=== PATIENT | female | born 1960 | race Two or more races ===

== ENCOUNTER 2021-12-04 22:40 | Inpatient (IN) | payer MEDICARE ==
[~2021-12-04] VITALS: Ht 165.1 cm; Wt 73.9 kg
[2021-12-04] MEDS ORDERED: LEVO25TA9 PO (22:54)
[2021-12-04] MEDS ORDERED: MELA3TAB41 PO (22:54)
--- NOTE | 2021-12-04 23:00 | NUR ---
Patient BIB [facility] ambulance unit 40 from [facility] on a 5150 hold to be medically cleared to be admitted to MHU. Patient calm and cooperative
--- NOTE | 2021-12-05 00:17 | NUR ---
report given to Ginny. patient will go to 145A
[2021-12-05] MEDS ORDERED: ACETAMINOPHEN 325 MG TABLET PO PRN (01:00)
[2021-12-05] MEDS ORDERED: LORAZEPAM 1 MG TABLET PO PRN (01:00)
--- NOTE | 2021-12-05 01:13 | NUR ---
Transfered patient to MHU. Ginny CORDOVA aware of patient's arrival
[2021-12-05 01:19] VITALS: BP 100/54
--- NOTE | 2021-12-05 01:45 | NUR ---
GPS ADMISSION NOTE: Patient is a 61 year old female , [facility] Patient is on a 5150 for DTS and GD. Per hold, the patient was found wondering the streets, confused at 300am. The [facility] The patient was exhibiting grandiose delusions and was unable to verbalized where she lived or verbalize a plan for safety and self care. Upon face to face evaluation, the patient was calm and withdrawn. This curriculum writer was unable to engage the patient in any meaningful conversation and when she was asked why she was here, the patient refused to answer and became irritated. The patient was provided an Advisement and a copy of the Patient Rights Handbook. VS are stable. There is no significant medical history provided and the patient has no contact information. She is homeless per medical notes. The patient was oriented to the environment and offered food which she refused and refused a shower. The patient is sitting on the edge of the bed, staring into space. Continuing to monitor for unpredictable behaviors. Safety Stratiges are in place at this time. Belongings in the safe.
[2021-12-05 04:37] VITALS: BP 100/54
[2021-12-05 08:29] VITALS: BP 118/47
[2021-12-05] MEDS: risperiDONE 0.5 MG TABLET PO SCH ×2 (12:03→17:00)
[2021-12-05] MEDS: LEVOTHYROXINE SODIUM 25 MCG TABLET PO SCH (12:03)
[2021-12-05 17:34] VITALS: BP 138/45
[2021-12-05 21:44] VITALS: BP 125/45
[2021-12-06] MEDS: LEVOTHYROXINE SODIUM 25 MCG TABLET PO SCH (06:10)
[2021-12-06 07:30] VITALS: BP 105/40
[2021-12-06] MEDS: risperiDONE 0.5 MG TABLET PO SCH ×2 (08:47→16:54)
[2021-12-06 15:44] VITALS: BP 109/38
--- NOTE | 2021-12-06 16:15 | NUR ---
MARCO A Initial Discharge Note: Pt is a 61 year old female admitted to [facility] on a 5150 for a danger to self and gravely disabled adult. Pt refused to cooperate in her assessment. Per face sheet, pt did not provide any family contact. Per hold, pt does not have a current residence. MARCO A will continue to work with pt and MD to ensure a safe and proper discharge plan for the pt.
--- NOTE | 2021-12-06 16:24 | NUR ---
Firearms Report: Head Piece Assembler completed and submitted a [employer] firearms report for 5150 for a danger to self and grave disability certifications. A copy of report has been placed in patient chart.
--- NOTE | 2021-12-06 16:47 | NUR ---
Gps/Mail Processing Clerk- Isolative , stayed in her room most of the time, encouraged participation in her group tx. Responding to internal stimuli.
[2021-12-06 20:17] VITALS: BP 112/53
[2021-12-07] MEDS: LEVOTHYROXINE SODIUM 25 MCG TABLET PO SCH (06:10)
--- NOTE | 2021-12-07 06:24 | NUR ---
GPS: Remain calm and cooperative with meds and care. slept 3 hrs through the night. took shower this morning.
[2021-12-07] MEDS: risperiDONE 0.5 MG TABLET PO SCH ×2 (08:56→18:05)
[2021-12-07 09:23] VITALS: BP 113/57
--- NOTE | 2021-12-07 10:15 | NUR ---
GPS: Nursing Notes: Request [facility]: Staff requested a 5250 certification review hearing through [facility] portal, a copy of 5250 delivered to patient, explained 5250 and patient verbalized understanding, continue to monitor for safety, continue with treatment plan.
--- NOTE | 2021-12-07 13:12 | NUR ---
GPS: Nursing Notes: Thought Disorder: Patient is awake and responding to her name, internally preoccupied, compliant with her medication, but needs a lot of prompting to take her medication, gets easily irritable when redirected, mumbling to unseen others when talking to staff, unable to formulate a viable plan for self care, isolative in her room, no interactions with peers, refusing to participate in therapeutic groups, slightly paranoid behavior, evasive when questioned by staff, continue to monitor for safety, continue with treatment plan.
[2021-12-07 16:09] VITALS: BP 120/37
[2021-12-07 20:00] VITALS: BP 126/66
[2021-12-07] MEDS: ZOLPIDEM 5 MG TABLET PO PRN (20:47)
[2021-12-08 07:30] VITALS: BP 104/52
[2021-12-08] MEDS: LEVOTHYROXINE SODIUM 25 MCG TABLET PO SCH (08:19)
[2021-12-08] MEDS: risperiDONE 0.5 MG TABLET PO SCH ×2 (08:19→16:19)
--- NOTE | 2021-12-08 13:36 | NUR ---
GPS: Nursing Notes: Thought Disorder: Patient is awake and responding to her name, isolative and withdrawn in her room, no interaction with peers, refusing to participate in therapeutic groups, mumbling and talking to unseen others, internally preoccupied, needs prompting to be compliant with her medications, episodes of staring at the ceiling when mumbling to self, unable to formulate a viable plan for self care, continue to monitor for safety, continue with treatment plan.
[2021-12-08 15:21] VITALS: BP 105/51
[2021-12-08 20:00] VITALS: BP 108/46
[2021-12-08] MEDS: risperiDONE 1 MG TABLET PO SCH (20:22)
--- NOTE | 2021-12-09 02:10 | NUR ---
Received patient at the start of the shift in bed. This patient was and is preoccupied with internal stimuli. This patient has not slept and is paranoid of her surroundings. This com writer offered medication to help the patient rest, but patient refused. The patient keeps to herself and will not exit the room. Safety Stratiges are in place. Continuing to monitor for compliance. The patient is unable and unwilling to engage in any meaningful conversation at this time. Frequent rounding is being done.
[2021-12-09] MEDS: LEVOTHYROXINE SODIUM 25 MCG TABLET PO SCH (05:45)
[2021-12-09 07:30] VITALS: BP 114/51
[2021-12-09] MEDS: risperiDONE 0.5 MG TABLET PO SCH ×2 (09:17→16:33)
--- NOTE | 2021-12-09 14:18 | NUR ---
GPS: Nursing Notes: Thought Disorder: Patient is awake and responding to her name, internally preoccupied, isolative in her room, episode of mumbling to unseen others, paranoid, staring at the ceiling at times, no interactions with peers, refusing to participate in therapeutic groups, unable to formulate a viable plan for self care, resistant with nursing care at times, withdrawn in her room, continue to monitor for safety, continue with treatment plan.
[2021-12-09 15:16] VITALS: BP 113/42
[2021-12-09 20:19] VITALS: BP 126/51
[2021-12-09] MEDS: risperiDONE 1 MG TABLET PO SCH (20:28)
[2021-12-10] MEDS: LEVOTHYROXINE SODIUM 25 MCG TABLET PO SCH (06:16)
[2021-12-10 07:30] VITALS: BP 95/52
[2021-12-10] MEDS: risperiDONE 0.5 MG TABLET PO SCH ×2 (08:30→17:53)
[2021-12-10 16:12] VITALS: BP 103/45
--- NOTE | 2021-12-10 17:32 | NUR ---
GPS: Nursing Notes: Thought Disorder: Patient is awake and responding to her name, internally preoccupied, mumbling to unseen others, isolative and withdrawn in her room, no interactions with peers, refusing to participate in therapeutic groups, compliant with her medications, unable to formulate a viable plan for self care, continue to monitor for safety, continue with treatment plan.
[2021-12-10 20:00] VITALS: BP 104/55
[2021-12-10] MEDS: ZOLPIDEM 5 MG TABLET PO PRN (20:35)
[2021-12-10] MEDS: risperiDONE 2 MG TABLET PO SCH (20:35)
[2021-12-10] MEDS ORDERED: risperiDONE 1 MG TABLET PO SCH (21:00)
--- NOTE | 2021-12-11 05:50 | NUR ---
patient remains isolative in her room, talking to herself. Patient able to answer questions. Patient compliant with medications. Patient sleeps well at night. Safety strategies in place. Will continue plan of care
[2021-12-11] MEDS: LEVOTHYROXINE SODIUM 25 MCG TABLET PO SCH (06:11)
[2021-12-11 07:30] VITALS: BP 98/43
--- NOTE | 2021-12-11 08:27 | NUR ---
MARCO A Discharge Update: Pt continues to refuse speaking to SW regarding discharge plan. Pt refuses to share further information about her continuation of care and family contact. MARCO A will continue to work with pt and MD to ensure a safe and proper discharge plan.
[2021-12-11] MEDS: risperiDONE 0.5 MG TABLET PO SCH ×2 (08:49→17:50)
[2021-12-11 16:00] VITALS: BP 115/40
--- NOTE | 2021-12-11 17:08 | NUR ---
Received patient sleeping in her room. A/O X 2 to person, place. Pt. is withdrawn, calm, isolative, quiet, not engage in verbal approach. Denies SI/HI AH/VH. Denies pain. Denies SOB. Requires more than minimal assistance with ADL. Reassurance given. Fall and safety precautions implemented.
[2021-12-11 20:00] VITALS: BP 111/52
[2021-12-11] MEDS: risperiDONE 2 MG TABLET PO SCH (21:12)
[2021-12-11] MEDS: ZOLPIDEM 5 MG TABLET PO PRN (21:13)
[2021-12-12] MEDS: LEVOTHYROXINE SODIUM 25 MCG TABLET PO SCH (06:57)
[2021-12-12 08:00] VITALS: BP 125/47
[2021-12-12] MEDS: risperiDONE 0.5 MG TABLET PO SCH (08:35)
--- NOTE | 2021-12-12 11:11 | NUR ---
Gps/Developmental Mathematics Professor- Isolative, preferred to stay in her room, encouraged to participate in her group therapy, as well as to try and eat in the dinning room . Compliant with routine am med.flat, guarded .
[2021-12-12 16:00] VITALS: BP 138/73
[2021-12-12] MEDS: risperiDONE 1 MG TABLET PO SCH (16:50)
[2021-12-12 20:12] VITALS: BP 101/52
[2021-12-12] MEDS: ZOLPIDEM 5 MG TABLET PO PRN (20:27)
[2021-12-12] MEDS: risperiDONE 2 MG TABLET PO SCH (20:27)
[2021-12-13] MEDS: LEVOTHYROXINE SODIUM 25 MCG TABLET PO SCH (06:17)
[2021-12-13 07:30] VITALS: BP 107/49
[2021-12-13] MEDS: risperiDONE 1 MG TABLET PO SCH ×2 (08:29→16:26)
[2021-12-13 16:40] VITALS: BP 112/48
[2021-12-13] MEDS: risperiDONE 2 MG TABLET PO SCH (20:30)
[2021-12-13 22:30] VITALS: BP 107/52
[2021-12-14] MEDS: LEVOTHYROXINE SODIUM 25 MCG TABLET PO SCH (06:09)
[2021-12-14 07:30] VITALS: BP 111/32
[2021-12-14] MEDS: risperiDONE 1 MG TABLET PO SCH ×2 (08:38→16:35)
[2021-12-14 16:00] VITALS: BP 109/33
[2021-12-14] MEDS: risperiDONE 2 MG TABLET PO SCH (20:30)
[2021-12-14 20:47] VITALS: BP 115/80
[2021-12-15] MEDS: LEVOTHYROXINE SODIUM 25 MCG TABLET PO SCH (06:17)
[2021-12-15 07:30] VITALS: BP 107/36
[2021-12-15] MEDS: risperiDONE 1 MG TABLET PO SCH ×2 (08:31→16:32)
[2021-12-15 16:00] VITALS: BP 113/37
[2021-12-15 20:00] VITALS: BP 121/55
[2021-12-15] MEDS: risperiDONE 2 MG TABLET PO SCH (20:29)
--- NOTE | 2021-12-15 21:12 | NUR ---
Pt received lying in bed resting comfortably. isolative and withdrawn. flat affect. Guarded. Compliant with medications and care. No aggressive or combative behavior noted.
[2021-12-16] MEDS: LEVOTHYROXINE SODIUM 25 MCG TABLET PO SCH (06:00)
[2021-12-16 07:31] LABS: BILIRUBIN,TOTAL 0.3 mg/dL (0.2-1.0); CREATININE 0.9 mg/dL (0.6-1.3); PHOSPHOROUS 4.5 mg/dL (2.5-4.9); POTASSIUM 3.9 mmol/L (3.5-5.1); TOTAL PROTEIN, SERUM 6.2 g/dL (6.4-8.2)
[2021-12-16 07:44] LABS: HEMATOCRIT 34.8 % (31.2-41.9); MEAN CORPUSCULAR HEMOGLOBIN 31.6 uug (24.7-32.8); PLATELET COUNT (AUTO) 211 K/uL (179-408)
[2021-12-16 08:00] VITALS: BP 112/62
--- NOTE | 2021-12-16 08:37 | NUR ---
SNF Referral: SW faxed patient's referral packet including: History and Physical, Consultation, Progress Notes, Medication List and Labs to the following facilities for review and possible jail placement: [facility] ([phone]) [facility] [place] [address].
[2021-12-16] MEDS: risperiDONE 1 MG TABLET PO SCH ×2 (08:59→17:34)
--- NOTE | 2021-12-16 12:03 | NUR ---
SW Discharge Update: [facility] ([phone]) and BENJAMIN at [facility] ([phone]) [address] [place] [address], pt is accepted to their facility upon discharge. Pt does not have any family contact. is aware of the discharge update.
--- NOTE | 2021-12-16 15:49 | NUR ---
GPS: Nursing Notes: Thought Disorder: Patient is awake and responding to her name, isolative and withdrawn in her room, no interactions with peers, flat affect, refusing to participate in therapeutic groups, denies AH/VH, stated "I am not hearing voices or seeing things around..", compliant with her medication, low energy effect, internally preoccupied, continue to monitor for safety, unable to formulate a viable plan for self care, continue with treatment plan.
[2021-12-16 16:51] VITALS: BP 111/51
[2021-12-16] MEDS: risperiDONE 2 MG TABLET PO SCH (21:04)
[2021-12-16] MEDS: ZOLPIDEM 5 MG TABLET PO PRN (21:04)
[2021-12-16 21:09] VITALS: BP 127/60
--- NOTE | 2021-12-17 04:55 | NUR ---
patient is isolative withdrawn stay in her room no interaction with other peers,requested sleeping pill , sleeping most of shift.
[2021-12-17] MEDS: LEVOTHYROXINE SODIUM 25 MCG TABLET PO SCH (06:04)
[2021-12-17 08:00] VITALS: BP 112/49
[2021-12-17] MEDS: risperiDONE 1 MG TABLET PO SCH ×2 (08:42→17:52)
[2021-12-17 17:06] VITALS: BP 106/48
--- NOTE | 2021-12-17 19:30 | NUR ---
GPS: Pt in no acute distress. Pt can make her needs known. Safety and comfort provided. Pt isolated but follows command. Will continue to monitor.
[2021-12-17 20:06] VITALS: BP 101/50
[2021-12-17] MEDS: risperiDONE 2 MG TABLET PO SCH (20:56)
[2021-12-18] MEDS: LEVOTHYROXINE SODIUM 25 MCG TABLET PO SCH (06:03)
--- NOTE | 2021-12-18 06:18 | NUR ---
GPS: Pt slept six hours and thrity minutes.. Pt in no acute distress. Pt can make her needs known. Prescibed medication given and pt tolerated it well. Safety and comfort provided. All needs are met. Will endorse to incoming nurse for continuity of care.
[2021-12-18 07:30] VITALS: BP 122/33
[2021-12-18] MEDS: risperiDONE 1 MG TABLET PO SCH (08:24)
--- NOTE | 2021-12-18 12:49 | NUR ---
patient will be discharged to [facility] via ambulance at 1 pm, patient is alert and oriented x2-3 , patient is isolative withdrawn stay in her room no interaction with other peers.compliant with medication.patient will continue follow up with Dr. Truong psychiatrist and behavioral specialist per facility choice.all personal belonging returned to patient ,report given to Attila CORDOVA. at SNF.
--- NOTE | 2021-12-18 13:20 | NUR ---
Discharge Note Patient was discharged to [place] [id number] ) via ambulance. Patient [facility] be [facility]. Medical Secretary for this patient will be Tye. Patient was cooperative with discharge plan. Patient was alert and oriented x3 at discharge.
== END 2021-12-18 14:17 | DRG 885 ==
LOC: ER 22:53 → GPS 12-05 00:57
PROVIDERS: ADMIT Psychiatry & Neurology Psychiatry; ATTEND Internal Medicine
DX: F29 Unspecified psychosis not due to a substance or known physiological condition (principal); E44.1 Mild protein-calorie malnutrition; F03.91 Unspecified dementia, unspecified severity, with behavioral disturbance; E03.9 Hypothyroidism, unspecified; R62.7 Adult failure to thrive; E88.09 Other disorders of plasma-protein metabolism, not elsewhere classified; Z20.822 Contact with and (suspected) exposure to COVID-19; Z79.899 Other long term (current) drug therapy; Z73.6 Limitation of activities due to disability; Z68.27 Body mass index [BMI] 27.0-27.9, adult; F20.0 Paranoid schizophrenia; Z79.890 Hormone replacement therapy
CPT/HCPCS: 36415; 83735; 84100; 84443; 84481; 85025; 97161